=== PATIENT | male | born 1980 | race Caucasian/White ===

== ENCOUNTER 2019-05-23 10:01 | Emergency (ER) | payer SELFPAY ==
[2019-05-23 10:44] LABS: Basophils % 0.9 % (0-1.3); Hematocrit 45.9 % (39.6-49.0); Lymphocytes % 21.6 % (15.3-44.8); MPV 6.7 fL (7.6-11.3); RBC Red Blood Cell Count 5.13 M/uL (4.33-5.43)
[2019-05-23 11:07] LABS: Potassium 3.7 mmol/L (3.5-5.1)
--- NOTE | 2019-05-23 11:12 | RAD REPORT ---
EXAM DESCRIPTION: RAD - Elbow Right 3 View - 05/23/2019 11:02 am CLINICAL HISTORY: Right elbow pain and swelling FINDINGS: No fracture or dislocation is seen. Soft tissue swelling is present along the posterior a spect of the elbow. No bony destructive lesion
[2019-05-23] MEDS ORDERED: LIDOCAINE 1% W/EPI 1:100,000 MDV 20 ML VIAL ONE (11:14)
[2019-05-23] MEDS ORDERED: CLINDAMYCIN 900MG/D5W 900 MG/50 ML IVPB IV ONE (11:14)
--- NOTE | 2019-05-23 12:14 | EDPHYS ---
Physician Documentation [facility] Name: Сергей Oropeza III Age: 38 yrs Sex: Male : 1980 Arrival Date: 05/23/2019 Time: 10:03 Bed 5 Private MD: ED Physician Russ Morris HPI: 05/23 10:25 This 38 yrs old Male presents to ER via Ambulatory with complaints of Elbow cp Swelling. 10:25 The patient or guardian complains of pain, that is acute, swelling, tenderness. The cp complaints affect the posterior aspect of right elbow. 10:25 Onset: The symptoms/episode began/occurred 2 week(s) ago. Treatment prior to arrival cp includes: prescription medications, oral Bactrim. Associated signs and symptoms: Pertinent positives: erythema, swelling, warmth, Pertinent negatives: decreased range of motion, fever, numbness. Historical: - Allergies: 10:17 No Known Allergies; sv - PMHx: 10:17 None; sv - PSHx: 10:17 spinal fusion; sv - Immunization history:: Adult Immunizations up to date, Flu vaccine is not up to date. - Social history:: Smoking status: Patient uses tobacco products, smokes one pack cigarettes per day. - Ebola Screening: : No symptoms or risks identified at this time. ROS: 10:45 Constitutional: Negative for body aches, chills, fever, poor PO intake. cp 10:45 Eyes: Negative for injury, pain, redness, and discharge. cp 10:45 ENT: Negative for drainage from ear(s), ear pain, sore throat, difficulty swallowing, difficulty handling secretions. 10:45 Cardiovascular: Negative for chest pain, palpitations. 10:45 Respiratory: Negative for cough, shortness of breath, wheezing. 10:45 Abdomen/GI: Negative for abdominal pain, nausea, vomiting, and diarrhea. 10:45 Skin: Positive for swelling, of the posterior aspect of left elbow. 10:45 Neuro: Negative for altered mental status, headache, weakness. 10:45 All other systems are negative. Exam: 10:50 Head/Face: Normocephalic, atraumatic. cp 10:50 Constitutional: The patient appears in no acute distress, alert, awake, non-toxic, well developed, well nourished. 10:50 Eyes: Periorbital structures: appear normal, Conjunctiva: normal, no exudate, no cp injection, Lids and lashes: appear normal, bilaterally. 10:50 ENT: External ear(s): are unremarkable, Nose: is normal, Mouth: is normal, Posterior pharynx: is normal, airway is patent. 10:50 Chest/axilla: Inspection: normal. 10:50 Cardiovascular: Rate: normal. 10:50 Respiratory: the patient does not display signs of respiratory distress, Respirations: normal, no use of accessory muscles, no retractions, labored breathing, is not present. 10:50 Musculoskeletal/extremity: Extremities: grossly normal except: noted in the posterior aspect left elbow: erythema, swelling, tenderness, ROM: full active range of motion, in the left elbow, Perfusion: the extremity is normally perfused throughout, Sensation intact. Vital Signs: 10:17 BP 142 / 108; Pulse 92; Resp 18; Pulse Ox 100% ; Weight 86.64 kg; Height 6 ft. 0 in. sv (182.88 cm); Pain 4/10; 12:27 BP 142 / 95; Pulse 88; Resp 18; Pulse Ox 97% on R/A; aj1 10:17 Body Mass Index 25.90 (86.64 kg, 182.88 cm) sv Procedures: 12:10 I \T\ D: Incision and drainage was performed for an abscess of the right posterior elbow cp Prepped with Betadine, Drained small amount bloody fluid. Dressing: sterile 4x4 gauze, the patient tolerated the procedure well. MDM: 10:15 Patient medically screened. cp 11:00 Differential diagnosis: bursitis, abscess, cellulitis. cp 12:12 Data reviewed: vital signs, nurses notes, lab test result(s), radiologic studies, plain cp films, and as a result, I will discharge patient. 12:12 Counseling: I had a detailed discussion with the patient and/or guardian regarding: the cp historical points, exam findings, and any diagnostic results supporting the discharge/admit diagnosis, lab results, radiology results, the need for outpatient follow up, a orthopedic surgeon, to return to the emergency department if symptoms worsen or persist or if there are any questions or concerns that arise at home. Response to treatment: the patient's symptoms have markedly improved after treatment, and as a result, I will discharge patient. 05/23 10:21 Order name: CBC with Diff cp 05/23 10:21 Order name: BMP cp 05/23 10:19 Order name: XRAY Elbow RIGHT 3 view cp 05/23 10:45 Order name: CBC with Automated Diff; Complete Time: 10:57 EDMS 05/23 10:57 Interpretation: Normal except: MPV 6.7. cp 05/23 11:04 Order name: Crystals, Fluid; Complete Time: 22:38 cp 05/23 22:38 Interpretation: Reviewed. cp 05/23 11:07 Order name: Basic Metabolic Panel; Complete Time: 11:09 EDMS 05/23 10:21 Order name: I\T\D Setup; Complete Time: 10:36 cp 05/23 10:21 Order name: IV; Complete Time: 10:36 cp Administered Medications: 11:14 Drug: Lidocaine-Epinephrine -1%: (1:100,000) 5 ml {Note: AT B/S FOR PROVIDER.} Volume: bp 20 ml; Route: Infiltration; 11:30 Drug: Clindamycin 900 mg Route: IVPB; Infused Over: 30 mins; Site: left antecubital; bp Disposition: 05/23/19 12:13 Discharged to Home. Impression: Olecranon bursitis, right elbow. - Condition is Stable. - Discharge Instructions: Elbow Bursitis. - Prescriptions for Clindamycin HCl 300 mg Oral Capsule - take 1 capsule by ORAL route every 6 hours for 10 days; 40 capsule. Ibuprofen 800 mg Oral Tablet - take 1 tablet by ORAL route every 8 hours As needed take with food; 30 tablet. - Medication Reconciliation Form, Thank You Letter, Antibiotic Education, Prescription Opioid Use form. - Follow up: Parviz Penn MD; When: 2 - 3 days; Reason: Recheck today's complaints. - Problem is new. - Symptoms have improved. Addendum: 05/25/2019 19:22 Co-signature as Attending Physician, Russ Morris MD I agree with the assessment and k dr plan of care. Signatures: Dispatcher [employer] EDMakenna Shelby RN RN aj1 Smita Escamilla RN RN sv Rittger, Kevin, MD MD [facility] Gutierrez Low, MARLEE PA Jaciel Wong RN RN bp Corrections: (The following items were deleted from the chart) 08/30 12:28 12:13 05/23/2019 12:13 Discharged to Home. Impression: Olecranon bursitis, right elbow. aj1 Condition is Stable. Forms are Medication Reconciliation Form, Thank You Letter, Antibiotic Education, Prescription Opioid Use. Follow up: Dr. Parviz Penn; When: 2 - 3 days; Reason: Recheck today's complaints. Problem is new. Symptoms have improved. cp
--- NOTE | 2019-05-23 12:14 | ER ---
Nurse's Notes [facility] Name: Сергей Oropeza III Age: 38 yrs Sex: Male : 1980 Arrival Date: 05/23/2019 Time: 10:03 Bed 5 Private MD: Diagnosis: Olecranon bursitis, right elbow Presentation: 05/23 10:12 Presenting complaint: Patient states: right elbow swelling x 2 weeks, was given sv Bactroban by a friend and has been using it up until 4 days ago and now the swelling and redness has moved up the arm. Transition of care: patient was not received from another setting of care. Onset of symptoms was May 09, 2019. Risk Assessment: Do you want to hurt yourself or someone else? Patient reports no desire to harm self or others. Care prior to arrival: Medication(s) given: bactroban. 10:12 Method Of Arrival: Ambulatory sv 10:12 Acuity: MUKESH 3 sv 12:27 Initial Sepsis Screen: Does the patient meet any 2 criteria? No. Patient's initial aj1 sepsis screen is negative. Does the patient have a suspected source of infection? Yes: Skin breakdown/wound. Historical: - Allergies: 10:17 No Known Allergies; sv - PMHx: 10:17 None; sv - PSHx: 10:17 spinal fusion; sv - Immunization history:: Adult Immunizations up to date, Flu vaccine is not up to date. - Social history:: Smoking status: Patient uses tobacco products, smokes one pack cigarettes per day. - Ebola Screening: : No symptoms or risks identified at this time. Screenin:23 Abuse screen: Denies threats or abuse. Denies injuries from another. Nutritional aj1 screening: No deficits noted. Tuberculosis screening: No symptoms or risk factors identified. 12:27 Fall Risk None identified. aj1 Assessment: 10:23 General: Appears in no apparent distress. uncomfortable, Behavior is calm, cooperative, aj1 appropriate for age. Pain: Complains of pain in left elbow Pain does not radiate. Pain currently is 3 out of 10 on a pain scale. Neuro: Level of Consciousness is awake, alert, obeys commands, Oriented to person, place, time, situation. Cardiovascular: Patient's skin is warm and dry. Respiratory: Airway is patent Respiratory effort is even, unlabored, Respiratory pattern is regular, symmetrical. GI: No signs and/or symptoms were reported involving the gastrointestinal system. : No signs and/or symptoms were reported regarding the genitourinary system. EENT: No signs and/or symptoms were reported regarding the EENT system. Derm: Skin is intact, is healthy with good turgor, Abscess located on left elbow is golf ball sized, is hot to touch, is red, is raised. Musculoskeletal: No signs and/or symptoms reported regarding the musculoskeletal system. Circulation, motion, and sensation intact. 11:23 Reassessment: Patient appears in no apparent distress at this time. No changes from aj1 previously documented assessment. Patient and/or family updated on plan of care and expected duration. Pain level reassessed. Patient is alert, oriented x 3, equal unlabored respirations, skin warm/dry/pink. 12:27 Reassessment: Patient appears in no apparent distress at this time. No changes from aj1 previously documented assessment. Patient and/or family updated on plan of care and expected duration. Pain level reassessed. Patient is alert, oriented x 3, equal unlabored respirations, skin warm/dry/pink. Vital Signs: 10:17 BP 142 / 108; Pulse 92; Resp 18; Pulse Ox 100% ; Weight 86.64 kg; Height 6 ft. 0 in. sv (182.88 cm); Pain 4/10; 12:27 BP 142 / 95; Pulse 88; Resp 18; Pulse Ox 97% on R/A; aj1 10:17 Body Mass Index 25.90 (86.64 kg, 182.88 cm) sv ED Course: 10:03 Patient arrived in ED. ag3 10:07 Jaciel Cole, RN is Primary Nurse. bp 10:12 Gutierrez Low PA is PHCP. cp 10:12 Russ Morris MD is Attending Physician. cp 10:12 Arm band placed on Patient placed in an exam room, on a stretcher. sv 10:16 Triage completed. sv 10:23 Patient has correct armband on for positive identification. Bed in low position. Call aj1 light in reach. Side rails up X 1. 10:23 No provider procedures requiring assistance completed. aj1 10:27 Primary Nurse role handed off by Jaciel Cole, RN aj1 10:27 Makenna Adams, RN is Primary Nurse. aj1 10:33 Initial lab(s) drawn, by nj, sent to lab. Inserted saline lock: 20 gauge in left 3 antecubital area, using aseptic technique. Blood collected. 12:12 Parviz Penn MD is Referral Physician. cp 12:27 IV discontinued, intact, bleeding controlled, No redness/swelling at site. Pressure aj1 dressing applied. Administered Medications: 11:14 Drug: Lidocaine-Epinephrine -1%: (1:100,000) 5 ml {Note: AT B/S FOR PROVIDER.} Volume: bp 20 ml; Route: Infiltration; 11:30 Drug: Clindamycin 900 mg Route: IVPB; Infused Over: 30 mins; Site: left antecubital; bp Outcome: 12:13 Discharge ordered by . cp 12:27 Discharged to home ambulatory. aj1 12:27 Condition: good 12:27 Discharge instructions given to patient, Instructed on discharge instructions, follow up and referral plans. medication usage, Demonstrated understanding of instructions, follow-up care, medications, Prescriptions given X 2. 12:28 Patient left the ED. aj1 Signatures: Makenna Adams, RN RN aj1 Smita Escamilla, RN RN Gutierrez Griffith, PA [place] [id number] Jaciel Cole, RN RN Ailyn Mckinney 3
[2019-05-23 13:05] LABS: Body Fluid Source SYNOVIAL
[2019-05-23 13:06] LABS: Appearance SLT. TURBID (CLEAR); Body Fluid WBC 27924 /mm^3; Color of fluid Pink (COLORLESS)
== END 2019-05-23 12:28 | disposition home or self-care (01) ==
LOC: ER 10:01
PROC: 0J9G0ZZ Drainage of Right Lower Arm Subcutaneous Tissue and Fascia, Open Approach (ICD-10-PCS; principal; 2019-05-23)
DX: M70.21 Olecranon bursitis, right elbow (principal); F17.210 Nicotine dependence, cigarettes, uncomplicated
CPT/HCPCS: 36415; 80048; 85025; 87070; 89050; 89060; 96374; 99284